=== PATIENT | male | born 1935 | race Caucasian/White ===

== ENCOUNTER 2017-03-29 04:16 | Emergency (ER) | payer OTHER ==
[~2017-03-29 04:16] MED LIST: 1-ME1LIQ PO; ASPI81TA82 PO; ATEN-100 PO; BENA25TA8 PO; CLON.1 PO; GLIP5 PO; INDA1.25 PO; METF500 PO; PRED20 PO; PRIN5TAB PO; RANI150 PO; TAMS0.4C67 PO; ZOCO40TA PO
[2017-03-29 04:27] VITALS: BP 189/87; PULSE 75; RESP 20; O2SAT 100
[2017-03-29] MEDS ORDERED: FAMOTIDINE 20 MG/2 ML VIAL IV PUSH ONE (04:30)
[2017-03-29] MEDS ORDERED: methylPREDNISolone SOD SUCC 125 MG/2 ML VIAL IV PUSH ONE (04:30)
[2017-03-29] MEDS ORDERED: diphenhydrAMINE HCL 50 MG/ML VIAL IVP ONE (04:30)
[2017-03-29] MEDS ORDERED: SODIUM CHLORIDE 0.9% FLUSH 10 ML FLUSH IV FLUSH PRN (04:30)
[2017-03-29] MEDS ORDERED: SIMV20TA PO (04:38)
[2017-03-29] MEDS ORDERED: TAMS0.4C4 PO (04:38)
[2017-03-29] MEDS ORDERED: METF500T PO (04:38)
[2017-03-29] MEDS ORDERED: AMLO5TAB2 PO (04:38)
[2017-03-29] MEDS ORDERED: ATEN50TA PO (04:38)
[2017-03-29] MEDS ORDERED: LISI10TA3 PO (04:38)
[2017-03-29] MEDS ORDERED: GLIP5TAB8 PO (04:38)
[2017-03-29] MEDS ORDERED: CLON0.1T PO (04:38)
--- NOTE | 2017-03-29 04:46 | PD ---
HPI Chief Complaint: Allergic/Adverse Reaction Time Seen by Provider: 04:25 Travel History International Travel<30 days: No Contact w/Intl Traveler<30days: No Traveled to known affect area: No History of Present Illness HPI 81-year-old male presents to the emergency department with swelling of the left portion of the upper lip. Patient states awakened at 3:30 noticing swelling of the upper lip. No other lip swelling tongue or posterior pharyngeal swelling. No stridor no hoarseness no shortness of breath. No wheezing. No chest pain. No near-syncope or syncope. Patient does take lisinopril for blood pressure management. Patient states she's noticed this before in the past and was told to stop his lisinopril but his primary care provider told him to continue his medication. Patient denies other concerns or complaints. Last dose of lisinopril at 9 PM last evening. 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) Heart Rhythm Problems: Yes (IRREGULAR HEAT RATE) Cardiovascular Problems: Yes High Cholesterol: Yes Diabetes: Yes Diminished Hearing: No Genitourinary: Yes (ENLARGED PROSTATE) Hypertension: Yes Social History Alcohol Use: Yes (RARE) Tobacco Use: No (CHEWING TOBACCO) Substance Use: No Allergies-Medications (Allergen,Severity, Reaction): Coded Allergies: lisinopril (Verified Allergy, Unknown, Edema, 03/29/17) angioedema penicillin G (Unverified Allergy, Unknown, 03/29/17) Reported Meds & Prescriptions Reported Meds & Active Scripts Active Reported Tamsulosin (Tamsulosin HCl) 0.4 Mg Cap 0.4 Mg PO HS Lisinopril 10 Mg Tab 10 Mg PO DAILY Simvastatin 20 Mg Tab 20 Mg PO DAILY Amlodipine (Amlodipine Besylate) 5 Mg Tab 5 Mg PO DAILY Clonidine (Clonidine HCl) 0.1 Mg Tab 0.1 Mg PO BID Atenolol 50 Mg Tab 50 Mg PO BID Metformin (Metformin HCl) 500 Mg Tab 500 Mg PO BIDPC Glipizide 5 Mg Tab 5 Mg PO BIDAC Take 30 minutes before a meal Review of Systems Except as stated in HPI: all other systems reviewed are Neg General / Constitutional: No: Fever, Chills HENT: Positive: Other (lip edema), No: Congestion Cardiovascular: No: Chest Pain or Discomfort Respiratory: No: Shortness of Breath Gastrointestinal: No: Nausea, Vomiting, Abdominal Pain Genitourinary: No: Flank Pain Musculoskeletal: No: Edema, Pain Skin: No Rash, No Hives Neurologic: No: Weakness Psychiatric: No: Anxiety Hematologic/Lymphatic: No: Lymph Node Enlargement Physical Exam Narrative GENERAL: Well-developed well-nourished male in no acute distress no respiratory distress no stridor or hoarseness SKIN: Warm and dry. HEAD: Normocephalic. EYES: No scleral icterus. No injection or drainage. ENT: Mucous membranes moist , edentulous, patient noted to have isolated swelling of the left Of the upper lip; no evidence of other angioedema NECK: Supple, trachea midline. No JVD or lymphadenopathy. CARDIOVASCULAR: Regular rate and rhythm without murmurs, gallops, or rubs. RESPIRATORY: Breath sounds equal bilaterally. No accessory muscle use. GASTROINTESTINAL: Abdomen soft, non-tender, nondistended. MUSCULOSKELETAL: No cyanosis, or edema. BACK: Nontender without obvious deformity. No CVA tenderness. Data Data Last Documented VS Vital Signs Date Time Temp Pulse Resp B/P (MAP) Pulse Ox O2 Delivery O2 Flow Rate FiO2 03/29/17 05:00 69 20 161/78 (105) 100 Room Air Orders Orders Ecg Monitoring (03/29/17 04:25) Iv Access Insert/Monitor (03/29/17 04:25) Oximetry (03/29/17 04:25) Diphenhydramine Inj (Benadryl Inj) (03/29/17 04:30) Methylprednisolone So Succ Inj (Solumedr (03/29/17 04:30) Famotidine Inj (Pepcid Inj) (03/29/17 04:30) Sodium Chloride 0.9% Flush (Ns Flush) (03/29/17 04:30) MDM Medical Decision Making Medical Screen Exam Complete: Yes Emergency Medical Condition: Yes Medical Record Reviewed: Yes Differential Diagnosis SOTERO inhibitor angioedema, allergic reaction, anaphylaxis, contact dermatitis Narrative Course Patient placed on monitoring specialist IV access obtained Solu-Medrol 125 mg IV administered along with Benadryl 25 mg IV and Pepcid 20 mg IV Patient monitored Patient resting comfortably there has been no further swelling of the upper lip left lateral aspect in fact the area of swelling has diminished significantly; patient has no intraoral angioedema posterior pharyngeal angioedema no hoarseness no stridor; blood pressure is 140/70 room air O2 saturation 98%. Patient has been informed that he should not take lisinopril or any other SOTERO inhibitor in the future as risk for recurrent angioedema. Patient is on multiple antihypertensives including amlodipine 5 mg daily atenolol 50 mg twice daily clonidine 0.1 mg twice daily patient could safely increase his amlodipine to 10 mg daily (recommend increasing initially to 7.5 mg daily and then to 10 mg daily) after discontinuing lisinopril 10 mg daily; this is been discussed with the patient with the recommendation that he contact his primary care provider today to confirm his managing physicians recommendation for his blood pressure management without the ongoing use of SOTERO inhibitor, lisinopril. Diagnosis Primary Impression: SOTERO inhibitor-aggravated angioedema Referrals: Primary Care Physician 1 day Patient Instructions: General Instructions Additional Instructions: Contact your primary care provider regarding adjustment of your blood pressure medications as you should not take lisinopril in the future Follow-up with primary care provider call office today regarding blood pressure medication dosages Stopped taking lisinopril Return to the emergency department for any concerns or change condition Patient take Zantac 150 twice daily for 7 days May take Benadryl as directed per package instructions for allergic symptoms Complete course of Medrol Dosepak Monitor blood sugar closely while on steroid as may increase blood sugars; and follow ADA diet closely Med/Other Pt SpecificInfo: Prescription(s) given, Med Stopped (Lisinopril) Scripts Methylprednisolone Dosepak (Medrol Dosepak) 4 Mg Dspk 4 MG PO DIRECTED, #1 DSPK 0 Refills Per Pharmacist direction Prov: Lyssa Hardy MD 03/29/17 Disposition: 01 DISCHARGE HOME Condition: Stable Lyssa Hardy MD Mar 29, 2017 04:46
[2017-03-29 04:51] VITALS: BP 181/73; PULSE 59; RESP 20; O2SAT 99
[2017-03-29 05:00] VITALS: BP 161/78; PULSE 69; RESP 20; O2SAT 100
[2017-03-29] MEDS ORDERED: MEDR4PAK PO (05:36)
== END 2017-03-29 06:01 | disposition home or self-care (01) ==
LOC: PHED 04:16
DX: T78.3XXA Angioneurotic edema, initial encounter (principal); I10 Essential (primary) hypertension; E11.9 Type 2 diabetes mellitus without complications; E78.5 Hyperlipidemia, unspecified; Z79.84 Long term (current) use of oral hypoglycemic drugs; Z86.79 Personal history of other diseases of the circulatory system; Z87.438 Personal history of other diseases of male genital organs; Z87.39 Personal history of other diseases of the musculoskeletal system and connective tissue
CPT/HCPCS: 96374; 96375; 99284; J1200; J2930